=== PATIENT | female | born 1970 | race Caucasian/White ===

== ENCOUNTER → 2019-09-16 | Outpatient (CLI) | payer OTHER | LOC: LAB 13:52 | PROVIDERS: ATTEND Internal Medicine Cardiovascular Disease | DX: R00.2 Palpitations (principal); R06.09 Other forms of dyspnea | CPT/HCPCS: 36415 ==

== ENCOUNTER 2020-01-23 17:39 | Emergency (ER) | payer OTHER ==
[~2020-01-23] VITALS: Ht 167.6 cm; Wt 60.0 kg
[2020-01-23] MEDS ORDERED: ASPIRIN 81 MG TAB.CHEW PO ONE (17:45)
--- NOTE | 2020-01-23 18:08 | PHYS DOC ---
Past History Past Medical History: Hypothyroid, Other Additional Past Medical Histor: Sleep (GILES COFFEY DO) Past Surgical History: Tonsillectomy (GILES COFFEY DO) Alcohol Use: None (GILES COFFEY DO) Adult General Chief Complaint Chief Complaint: palpitations [facility] HPI 49-year-old female presents with palpitations and chest tightness. She was at home just coming in from taking the dogs out to her backyard when she began to feel her heart racing. This episode lasted for about 5 minutes. She felt mildly short of breath, no diaphoresis or dizziness. She had a second episode prior to coming to the emergency room. This all started about one hour ago. The patient has had floaters in the past, but they have not been this extreme and they've not lasted as long. She has seen a commodity broker and is currently getting worked up. She recently had an event monitor but does not know the results. The patient is hypothyroid and is on Synthroid. She has not had her TSH checked in several months. Her doses been steady for almost a year. She denies fever, chills, cough, shortness of breath, or other symptoms of illness. Her palpitations are currently gone. (GILES COFFEY DO) Review of Systems Review of Systems Constitutional: Denies fever or chills [] Eyes: Denies change in visual acuity, redness, or eye pain [] HENT: Denies nasal congestion or sore throat [] Respiratory: Denies cough or shortness of breath [] Cardiovascular: No additional information not addressed in HPI [] GI: Denies abdominal pain, nausea, vomiting, bloody stools or diarrhea [] : Denies dysuria or hematuria [] Musculoskeletal: Denies back pain or joint pain [] Integument: Denies rash or skin lesions [] Neurologic: Denies headache, focal weakness or sensory changes [] Endocrine: Denies polyuria or polydipsia [] All other systems were reviewed and found to be within normal limits, except as documented in this note. (GILES COFFEY DO) Current Medications Current Medications Current Medications Medications (Trade) Dose Ordered Sig/Keri Start Time Stop Time Status Last Admin Dose Admin Aspirin (Children'S Aspirin) 324 mg 1X ONCE 01/23/20 17:45 01/23/20 17:51 DC (GILES COFFEY DO) Allergies Allergies Allergies Coded Allergies Type Severity Reaction Last Updated Verified Iodine and Iodide Containing Produc Allergy Unknown 01/23/20 Yes codeine Allergy Unknown 01/23/20 Yes (GILES COFFEY DO) Physical Exam Physical Exam Constitutional: Well developed, well nourished, no acute distress, non-toxic ap pearance. [] HENT: Normocephalic, atraumatic, bilateral external ears normal, oropharynx moist, no oral exudates, nose normal. [] Eyes: PERRLA, EOMI, conjunctiva normal, no discharge. [] Neck: Normal range of motion, no tenderness, supple, no stridor. [] Cardiovascular: Heart rate 100, regular rhythm, no murmur [] Lungs & Thorax: Bilateral breath sounds clear to auscultation [] Abdomen: Bowel sounds normal, soft, no tenderness, no masses, no pulsatile masses. [] Skin: Warm, dry, no erythema, no rash. [] Back: No tenderness, no CVA tenderness. [] Extremities: No tenderness, no cyanosis, no clubbing, ROM intact, no edema. [] Neurologic: Alert and oriented X 3, normal motor function, normal sensory function, no focal deficits noted. [] Psychologic: Affect normal, judgement normal, mood normal. [] (GILES COFFEY DO) Current Patient Data Vital Signs Vital Signs Date Time Temp Pulse Resp B/P (MAP) Pulse Ox O2 Delivery O2 Flow Rate FiO2 01/23/20 17:49 98.2 109 18 117/68 (84) 96 Room Air (GILES COFFEY DO) EKG EKG [] (GILES COFFEY DO) Radiology/Procedures Radiology/Procedures [] (GILES COFFEY DO) Radiology/Procedures [address] [address] IMAGING REPORT Signed PATIENT: DERECK REYES EACCOUNT: [id number] : 1970 LOCATION: ER AGE: 49 SEX: F EXAM STATUS: REG ER ORD. PHYSICIAN: GILES COFFEY DO REASON: Chest pain PROCEDURE: CHEST PA & LATERAL CHEST PA LATERAL Technique: PA and lateral views of the chest were obtained. Clinical History: Comparison: None. Findings: The heart and pulmonary vasculature appear within normal limits. The lungs are clear. The pleural margins are clear. The lungs are hyperinflated. Impression: No acute chest process is seen. Electronically signed by: Mariajose Pang III, MD (01/23/2020 7:09 PM) [id number] DICTATED AND SIGNED BY: MARIAJOSE PANG III, MD DATE: 01/23/20 1909 CC: GILES COFFEY DO; BABITA BASSETT; MUKESH RODRIGUEZ DO ~ (MUKESH RODRIGUEZ DO) Course & Med Decision Making Course & Med Decision Making Pertinent Labs and Imaging studies reviewed. (See chart for details) Patient's EKG is unremarkable. Her labs are pending. Her chest x-ray is pending. I'm signing the patient out to Dr. Rodriguez at 1800. He will follow up on her workup and determine her final disposition. [] (GILES COFFEY DO) Course & Med Decision Making Patient was observed here for 4 hours, her heart rate had been normal. There is no abnormal heart rhythms detected. Her lab work was normal. Patient chest x-ray was normal as well as well as EKG was normal without any abnormality. SHe has this problem in the past, she had THE HOLTER MONITOR 2 weeks, she is scheduled to follow with her MAINTENANCE MECHANIC HELPER In 2 weeks to discuss about the RESULT. PATIENT IS SAFE TO BE DISCHARGED HOME. SHE DOES NOT NEED TO BE ADMITTED FOR URGENT EVALUATION AT THIS TIME. (MUKESH RODRIGUEZ DO) Dragon Disclaimer Dragon Disclaimer This electronic medical record was generated, in whole or in part, using a voice recognition dictation system. (GILES COFFEY DO) Departure Departure: Impression: Primary Impression: Palpitations Disposition: 01 HOME, SELF-CARE Condition: STABLE Referrals: BABITA BASSETT (PCP) FOLLOW UP WITH YOUR DOCTOR THIS WEEK. Patient Instructions: Palpitations Additional Instructions: Thank you for visiting our Emergency Department. We appreciate you trusting us with your care. If any additional problems come up don't hesitate to return to visit us. Please follow up with your primary care provider so they can plan additional care if needed and know about the problem that you had. If symptoms worsen come back to the Emergency Department. Any concerning symptoms that start such as chest pain, shortness of air, weakness or numbness on one side of the body, running high fevers or any other concerning symptoms return to the ER. GILES COFFEY DO Jan 23, 2020 18:08 MUKESH RODRIGUEZ DO Jan 23, 2020 22:03
[2020-01-23 18:10] LABS: BASO # 0.1 x10^3/uL (0.0-0.2); BASO % 1 % (0-3); EOS # 0.1 x10^3/uL (0.0-0.7); EOS % 1 % (0-3); HEMATOCRIT 39.7 % (36.0-47.0); HEMOGLOBIN 13.1 g/dL (12.0-15.5); LYMPH # 1.8 x10^3/uL (1.0-4.8); LYMPH % 33 % (24-48); MEAN CORPUSCULAR HEMOGLOBIN 29 pg (25-35); MEAN CORPUSCULAR HGB CONC 33 g/dL (31-37); MEAN CORPUSCULAR VOLUME 88 fL (79-100); MONO # 0.6 x10^3/uL (0.0-1.1); MONO % 10 % (0-9); NEUT # 3.1 x10^3uL (1.8-7.7); NEUT % 55 % (31-73); PLATELET COUNT 250 x10^3/uL (140-400); RED BLOOD COUNT 4.52 x10^6/uL (3.50-5.40); RED CELL DISTRIBUTION WIDTH 13.7 % (11.5-14.5); WHITE BLOOD COUNT 5.6 x10^3/uL (4.0-11.0)
[2020-01-23 18:21] LABS: CALCIUM 8.8 mg/dL (8.5-10.1); CREATININE 0.7 mg/dL (0.6-1.0); GFR 88.9; POTASSIUM 3.6 mmol/L (3.5-5.1)
[2020-01-23 18:27] LABS: ALBUMIN 3.8 g/dL (3.4-5.0); ALBUMIN/GLOBULIN RATIO 1.3 (1.0-1.7); TOTAL BILIRUBIN 0.2 mg/dL (0.2-1.0); TOTAL PROTEIN 6.8 g/dL (6.4-8.2)
--- NOTE | 2020-01-23 19:12 | RAD ---
CHEST PA LATERAL Technique: PA and lateral views of the chest were obtained. Clinical History: Comparison: None. Findings: The heart and pulmonary vasculature appear within normal limits. The lungs are clear. The pleural margins are clear. The lungs are hyperinflated. Impression: No acute chest process is seen. Electronically signed by: Everton Goldsmith III, MD (01/23/2020 7:09 PM) [id number]
[2020-01-23 21:40] VITALS: BP 107/58
--- NOTE | 2020-01-23 22:53 | EKG ---
[address] [address] Test Date: 2020-01-23 Test Time: 17:46:44 Pat Name: DERECK RYEES Department: Room: Gender: F Irrigation Specialist: : 1970 Requested By: GILES COFFEY Order Number: [id number] Reading MD: Measurements Intervals [place] Rate: 100 P: 90 TX: 120 QRS: 79 QRSD: 74 T: 54 QT: 336 QTc: 436 Interpretive Statements SINUS RHYTHM QRS(T) CONTOUR ABNORMALITY CONSIDER INFERIOR MYOCARDIAL DAMAGE POSSIBLY ABNORMAL ECG RI6.01 No previous ECG available for comparison
== END 2020-01-23 22:25 | disposition home or self-care (01) ==
LOC: ER 17:39
DX: R00.2 Palpitations (principal); R07.89 Other chest pain; R06.02 Shortness of breath; E03.9 Hypothyroidism, unspecified; Z88.8 Allergy status to other drugs, medicaments and biological substances; Z88.5 Allergy status to narcotic agent
CPT/HCPCS: 36415; 71046; 80053; 83735; 84443; 84484; 85025; 93005; 99285-25